=== PATIENT | male | born 1970 | race Two or more races ===

== ENCOUNTER 2019-11-09 13:36 | Emergency (ER) | payer SELFPAY ==
[~2019-11-09] VITALS: Ht 172.7 cm; Wt 85.0 kg
[2019-11-09] MEDS ORDERED: ACETAMINOPHEN 325MG TABLET PO STA (17:01)
[2019-11-09] MEDS ORDERED: IBUPROFEN 600MG TABLET PO STA (17:01)
[2019-11-09] MEDS ORDERED: ONDANSETRON 4MG ODT PO STA (17:01)
[2019-11-09 17:32] LABS: BASOPHILS % 0.5 % (0.0-2.0); EOSINOPHILS % 0.1 % (0.0-5.0); HEMATOCRIT. 48.8 % (42.0-52.0); HEMOGLOBIN. 16.9 g/dL (14.0-18.0); MEAN CORPUSCULAR HEMOGLOBIN 30.9 pg (28.0-32.0); MEAN CORPUSCULAR VOLUME 89.1 fL (80.0-94.0); MEAN PLATELET VOLUME 8.3 fl (7.4-10.4); MONOCYTES % 6.2 % (2.0-8.0); NEUTROPHILS % 78.2 % (40.0-76.0); PLATELET 235 x1000/uL (130-400); RED BLOOD CELL COUNT 5.47 mill/uL (4.7-6.1); RED CELL DISTRIBUTION WIDTH 13.2 % (11.6-14.6)
[2019-11-09 17:39] LABS: CHLORIDE 104 mEq/L (98-107)
[2019-11-09 19:42] VITALS: BP 148/101
== END 2019-11-09 19:44 | disposition home or self-care (01) ==
LOC: ER 13:36
DX: R51 Headache (principal); I10 Essential (primary) hypertension; Z90.49 Acquired absence of other specified parts of digestive tract
CPT/HCPCS: 36415; 70450; 80053; 85025; 99284; Q0162

== ENCOUNTER 2023-12-05 02:12 | Inpatient (IN) | payer MEDICAID, OTHER ==
[~2023-12-05] VITALS: Ht 165.1 cm; Wt 79.0 kg
[2023-12-05 02:18] VITALS: O2SAT 96
[2023-12-05 02:58] LABS: BASOPHILS % 0.6 % (0.0-2.0); EOSINOPHILS % 1.3 % (0.0-5.0); HEMATOCRIT. 48.4 % (42.0-52.0); HEMOGLOBIN. 16.4 g/dL (14.0-18.0); LYMPHOCYTES % 37.1 % (20.0-50.0); MEAN CORPUSCULAR HEMOGLOBIN 30.3 pg (28.0-32.0); MEAN CORPUSCULAR HGB CONC 33.8 g/dL (31.0-37.0); MEAN CORPUSCULAR VOLUME 89.9 fL (80.0-94.0); MEAN PLATELET VOLUME 8.7 fl (7.4-10.4); MONOCYTES % 8.8 % (2.0-8.0); NEUTROPHILS % 52.2 % (40.0-76.0); PLATELET 195 x1000/uL (130-400); RED BLOOD CELL COUNT 5.39 mill/uL (4.7-6.1); RED CELL DISTRIBUTION WIDTH 13.8 % (11.6-14.6); WHITE BLOOD COUNT 8.7 x1000/uL (4.5-11.0)
[2023-12-05 03:20] LABS: ALANINE AMINOTRANSFERASE 40 IU/L (10-49); ALBUMIN 4.4 g/dL (3.2-4.8); ASPARTATE AMINOTRANSFERASE 29 IU/L (<34); BILIRUBIN TOTAL 0.3 mg/dL (0.1-1.0); CALCIUM 8.9 mg/dL (8.7-10.4); CARBON DIOXIDE 28 mEq/L (21-32); CHLORIDE 105 mEq/L (98-107); CREATININE 0.8 mg/dL (0.6-1.3); GLUCOSE 107 mg/dL (70-105); POTASSIUM 3.6 mEq/L (3.5-5.1); SODIUM 138 mEq/L (136-145); UREA NITROGEN BLOOD 16 mg/dL (9-23)
[2023-12-05 03:35] LABS: ETHANOL BLOOD < 10 mg/dL (<10)
[2023-12-05 03:36] LABS: TROPONIN I HIGH SENSITIVITY 81 ng/L (3.0-53)
[2023-12-05] MEDS: ACETAMINOPHEN 325MG TABLET PO ONE (04:13)
[2023-12-05] MEDS: MECLIZINE 25MG TABLET PO ONE (04:14)
[2023-12-05] MEDS: HYDRALAZINE 20MG/ML VIAL IV NR (06:03)
[2023-12-05] MEDS: ASPIRIN 325MG EC TABLET PO NR (06:03)
[2023-12-05 07:13] LABS: *AMPHETAMINES SCREEN URINE NEGATIVE (NEGATIVE); *BARBITURATES SCREEN URINE NEGATIVE (NEGATIVE); *BENZODIAZEPINES SCREEN URINE NEGATIVE (NEGATIVE); *COCAINE SCREEN URINE NEGATIVE (NEGATIVE); CANNABINOID URINE SCREEN NEGATIVE (NEGATIVE); ECSTASY MDMA SCREEN URINE NEGATIVE (NEGATIVE); METHADONE URINE SCREEN Neg (NEGATIVE); OPIATES URINE SCREEN PRESUMPTIVE POSITIVE (NEGATIVE); PHENCYCLIDINE URINE SCREEN NEGATIVE (NEGATIVE)
[2023-12-05] MEDS: AMLODIPINE 10MG TABLET PO SCH (12:00)
[2023-12-05] MEDS ORDERED: ONDANSETRON HCL 4MG/2ML INJ IV PRN (12:00)
[2023-12-05] MEDS: ACETAMINOPHEN 325MG TABLET PO PRN (13:13)
[2023-12-05 17:21] VITALS: BP 124/90; PULSE 71; RESP 16; TEMP 98.4
== END 2023-12-05 19:00 | disposition home or self-care (01) | DRG 199 ==
LOC: ER 02:12 → 5WST 05:48 → EDBEDREQTM 05:49 → EDBEDREQ 05:49
PROVIDERS: ADMIT Internal Medicine; ATTEND Internal Medicine
DX: I16.0 Hypertensive urgency (principal); G90.8 Other disorders of autonomic nervous system; I10 Essential (primary) hypertension; I25.10 Atherosclerotic heart disease of native coronary artery without angina pectoris; Z90.49 Acquired absence of other specified parts of digestive tract
CPT/HCPCS: 36415; 71045; 80053; 80305; 80320; 83880; 84484; 85025; 93005; 99285; J0360; J8597; G0480